=== PATIENT | male | born 1965 | race Caucasian/White ===

== ENCOUNTER → 2019-08-20 11:21 | Outpatient (CLI) | payer OTHER, SELFPAY ==
[2019-08-20 11:07] VITALS: BMI 34.5
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
== END ==
PROVIDERS: Referring Provider Physician Assistant; Visit Provider Physician Assistant
DX: S16.1XXA Strain of muscle, fascia and tendon at neck level, initial encounter (principal); S80.01XA Contusion of right knee, initial encounter; S39.012A Strain of muscle, fascia and tendon of lower back, initial encounter
CPT/HCPCS: 72050; 72100; 73564

== ENCOUNTER → 2019-08-27 10:03 | Outpatient (CLI) | payer OTHER, SELFPAY ==
[2019-08-27 09:42] VITALS: BMI 21.7
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
== END ==
PROVIDERS: Referring Provider Physician Assistant; Visit Provider Physician Assistant
DX: M25.571 Pain in right ankle and joints of right foot (principal)
CPT/HCPCS: 73502; 73610

== ENCOUNTER → 2019-08-31 10:00 | Outpatient (CLI) | payer OTHER, SELFPAY ==
[2019-08-31 07:52] VITALS: BMI 34.5
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
== END ==
PROVIDERS: Referring Provider Orthopaedic Surgery; Visit Provider Orthopaedic Surgery
DX: M79.671 Pain in right foot (principal)
CPT/HCPCS: 73630

== ENCOUNTER → 2019-09-04 15:06 | Outpatient (CLI) | payer OTHER, SELFPAY ==
[2019-08-31 07:52] VITALS: BMI 34.5
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
== END ==
PROVIDERS: PCP Nurse Practitioner Family; Referring Provider Physician Assistant; Visit Provider Physician Assistant
DX: S80.01XA Contusion of right knee, initial encounter (principal); S82.831A Other fracture of upper and lower end of right fibula, initial encounter for closed fracture
CPT/HCPCS: 73721